=== PATIENT | female | born 1970 | race Caucasian/White ===

== ENCOUNTER 2023-02-24 14:51 | Outpatient (AMB) | payer OTHER, SELFPAY ==
--- NOTE | 2023-02-24 14:57 | MHC.OFFVIS ---
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 pt its been feeling dizziness for the pass 2 weeks and the palpitations comes and go. C4 Planner Required: No Accompanied by: Self / Same As Patient Allergies No Known Allergies Allergy (Verified 02/24/23 15:00) Medication List - Last Reconciled 02/24/23 by MARGIE Corbin sertraline 100 mg PO DAILY HPI ELIGIBILITY SERVICES REPRESENTATIVE[place] [facility] [place] HPI Details Ariana is a 53-year-old female with no significant past medical history who was recently seen in the emergency room for chest discomfort and heart palpitations without significant findings. She now presents here for cardiology consultation. Today she reports that she has been under high stress recently at work and with family issues. Recently when at work she felt lightheaded and had the nurse check her blood pressure and it was noted to be around 140/90 which is very high for her. Later that day she developed a very sharp pain in her left chest region which persisted and cause much concern. She presented to the [facility] ER for evaluation. They performed lab work, EKG and chest x-ray. She left prior to being seen due to prolonged ER wait. Her symptom did resolve without treatment. She describes a history of having chest pain similar to this in the past. She had a stress test last year at [facility] which she reported as being normal. She also describes having heart palpitations where her heart is pounding and skipping causing concern. No shortness of breath, presyncope, syncope, PND, orthopnea or edema. She continues to have episodes where she feels lightheaded. She has family history of atrial fibrillation in her mother and brother. Nonsmoker and only social alcohol use. 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 [facility] Family History Mother A-fib Brother A-fib Father No problems noted. Social History Alcohol intake: current Alcohol intake frequency: holidays/special occasions only Patient Tobacco Use Status: Never used Tobacco Review of Systems Const All systems reviewed & are unremarkable except as noted in HPI and below Denies chills, Denies fatigue, Denies fever(s), Denies frequent falls, Denies weakness, Denies weight gain and Denies weight loss ENT Denies dizziness Card Reports chest pain, Denies leg edema, Reports lightheadedness, Reports palpitations, Denies dyspnea, Denies dyspnea on exertion and Denies orthopnea Resp Denies cough, Denies dyspnea and Denies dyspnea on exertion GI Denies bloating and Denies change in bowel habits Musc Denies muscle weakness, Denies numbness and Denies tingling Neuro Denies dizziness, Denies frequent falls, Denies numbness, Denies tingling and Denies weakness Endo Denies fatigue and Reports palpitations Physical Exam Vital Signs: Last Vital Signs Pulse 76 02/24/23 14:58 BP 120/60 02/24/23 14:58 BMI result Body Mass Index 23.8 Const General: cooperative, healthy appearing, comfortable and no acute distress Orientation/consciousness: patient oriented x3 Neck Neck: Yes normal visual inspection Resp Effort & Inspection: normal respiratory effort Auscultation: clear to auscultation bilaterally, no rales, no rhonchi and no wheezes Cardio Jugular venous distension: no JVD Rate: regular rate Rhythm: regular rhythm Heart sounds: S1 normal heart sound present, S2 normal heart sound present, no murmurs and no rubs Neuro General: patient oriented x3 Extrem General: Yes normal to inspection Psych Appearance: grossly normal Mental Status: mental status grossly normal Speech and movement: Normal speech and movement present Office Procedures EKG Details: Today, read by me, normal sinus rhythm, right bundle branch block, rate 76, QTC 450 milliseconds [id number], Complete Assessment & Plan Assessment & Plan (1) Chest discomfort: Code(s): R07.89 - Other chest pain Plan: Reports of sharp chest pain to the left chest region in the setting of high stress levels and blood pressure more elevated than her usual. [place] [facility] [place] and reports having lab work, chest x-ray and EKG done. She left prior to MD evaluation due to prolonged ER weight. Her symptom did resolve on its own. EKG reviewed by me showed normal sinus rhythm with right bundle branch block, no acute ST or T-wave abnormalities. EKG was unchanged from one done 11/15/2021. Exercise stress test had been done 12/23/2021 showing normal findings. Today she reports intermittent episodes of chest discomfort and heart palpitations causing concern. EKG done today showing sinus rhythm with right bundle branch block, rate 76. For completeness will further evaluate with stress echocardiogram to ensure no ischemic findings. Will check echocardiogram to assess for any structural heart disease. Signs and symptoms of angina reviewed. Emergency care if needed for symptoms. Plan to call her with test results when available. (2) Palpitation: Code(s): R00.2 - Palpitations Plan: Reports of heart palpitations like her heart is skipping beats and going fast at times causing much concern. Echo and Holter as above. (3) Elevated BP without diagnosis of hypertension: Code(s): R03.0 - Elevated blood-pressure reading, without diagnosis of hypertension Plan: Recent high stress levels. Blood pressure documented to be more elevated than her usual. She states typically her blood pressure is like 110/60. Blood pressure today a recheck by or 140/82. Recommended obtaining home blood pressure monitor and do periodic checks at home. No need for medical management at present (4) Right bundle branch block (RBBB): Code(s): I45.10 - Unspecified right bundle-branch block Plan: Finding of right bundle branch block on EKG. According [place] [facility] [place] right bundle branch present on EKG 10/2021. (5) Family history of atrial fibrillation: Code(s): Z82.49 - Family history of ischemic heart disease and other diseases of the circulatory system Plan: Mother, brother each have atrial fibrillation. Patient is reporting heart palpitations. Holter monitor as above. Plan Time spent on chart review, documentation, interview and assessment Orders: Orders CA echo transthoracic complete Today I45.10 - Unspecified right bundle-branch block, R00.2 - Palpitations, R03.0 - Elevated blood-pressure reading, without diagnosis of hypertension CA echo stress exercise Today I45.10 - Unspecified right bundle-branch block, R03.0 - Elevated blood-pressure reading, without diagnosis of hypertension, R07.89 - Other chest pain ECG 3 day holter monitor Today I45.10 - Unspecified right bundle-branch block, R00.2 - Palpitations, Z82.49 - Family history of ischemic heart disease and other diseases of the circulatory system Coding Level of Care Code New Pt Level 4 (65812) Diagnoses Chest discomfort R07.89 Palpitation R00.2 Elevated BP without diagnosis of hypertension R03.0 Right bundle branch block (RBBB) I45.10 Family history of atrial fibrillation Z82.49 CPT Codes EKG - CPT: 76812-[id number], Complete ([id number]) Time Spent (min) 30
[2023-02-24 14:58] VITALS: BP 120/60; PULSE 76; BMI 23.8
== END 2023-02-24 15:50 | disposition home or self-care (01) ==
PROVIDERS: Visit Provider Nurse Practitioner Family
DX: R07.89 Other chest pain (principal); R00.2 Palpitations; R03.0 Elevated blood-pressure reading, without diagnosis of hypertension; I45.10 Unspecified right bundle-branch block; Z82.49 Family history of ischemic heart disease and other diseases of the circulatory system
CPT/HCPCS: 93010; 99204

== ENCOUNTER → 2023-02-24 14:51 | Outpatient (BNVA) | payer OTHER, SELFPAY | PROVIDERS: Visit Provider Nurse Practitioner Family | DX: R00.2 Palpitations (principal); R07.89 Other chest pain; R03.0 Elevated blood-pressure reading, without diagnosis of hypertension; I45.10 Unspecified right bundle-branch block; Z82.49 Family history of ischemic heart disease and other diseases of the circulatory system | CPT/HCPCS: 93005 ==

== ENCOUNTER → 2023-03-15 14:50 | Outpatient (REF) | payer OTHER, SELFPAY ==
--- NOTE | 2023-03-15 14:55 | CA_ITS ---
Transthoracic Echocardiogram Patient (Last, First, Middle): Ariana Shah T Gender: Female Date of : 1970 Age: 53 Procedure Date: 03/15/2023 Procedure Type: Transthoracic Echocardiogram Location: OP Height: 162.56 cm Weight: 62.6 kg BSA: 1.67 m2 Heart Rate: 67 bpm BP: 120 / 60 mmHg Executive Secretary: URIAH Referring MD: Maryann Marquez PROJECT ASSOCIATE-C Nutrition Instructor: Khurram Dalton MD Symptoms: I45.10 - Unspecified right bundle-branch block Study Quality: Adequate ECG Rhythm: Sinus Conclusions: - 1. Normal LV ejection fraction 55-60% 2. Normal cardiac valvular Doppler 3. Normal RV systolic pressure 4. Mildly dilated ascending aorta 3.8 cm 5. No pericardial effusion Findings Left Ventricle Normal left ventricular size, thickness, and systolic function. The visually estimated ejection fraction is between 55-60%. Spectral Doppler is indicative of a normal filling pattern. Right Ventricle Normal right ventricular cavity size and systolic function. Atria The left atrium is likely dilated. There is a highly mobile atrial septum noted. Interatrial shunt cannot be excluded. The right atrium is normal in size. Aortic Valve Normal aortic valve structure and function. There is no aortic valve stenosis. There is no aortic valve regurgitation. Mitral Valve Normal mitral valve structure and function. There is trace mitral valve regurgitation. There is no mitral valve stenosis. Pulmonic Valve The pulmonic valve is likely normal. Tricuspid Valve Normal tricuspid valve structure. There is trace tricuspid valve regurgitation. The right ventricular systolic pressure is normal. The right ventricular systolic pressure is 20 mmHg. Normal right atrial pressure. There is no evidence of pulmonary hypertension. Great Vessels The pulmonary artery was not well visualized. There is mild dilatation of the ascending aorta measuring 3.80 cm. Venous The inferior vena cava is normal in size and collapses greater than 50% with inspiration. Pericardium/Pleural There is no evidence of pericardial effusion. Prior Study Comparison No prior study available for comparison. Recommendations, Care & Conclusions Recommend contrast study to evaluate intracardiac shunting. Measurements 2D Linear Measurements IVSd: 0.70 0.6-0.9/0.6-1.0 cm LVIDd: 5.11 3.9-5.3/4.2-5.9 cm LVIDd Index: 3.06 2.4-3.2/2.2-3.1 cm/m2 LVIDs: 3.28 2.0-3.6 cm LVPWd: 0.63 0.7-1.1 cm LA Diam: 3.40 2.7-3.8/3.0-4.0 cm LAIDs Index: 2.04 1.5-2.3 cm/m2 LV Mass: 138.87 67-162/88-224 g LV Mass Index: 83.16 43-95/49-115 g/m2 LVOT Diam: 2.30 3.0+(-)1.3 cm Mitral Valve MV Pk E: 0.77 MV PK A: 0.72 MV Decel Time: 155.00 E/A: 1.10 E'Lateral: 11.10 E'Medial: 7.18 E/E' Med: 10.70 E/E' Lat: 6.90 PHT: 45.00 MVA PHT: 4.89 Decel [place]: 4.97 Aortic Valve AoV Pk Get: 1.06 AoV Pk Grad: 4.00 CLARKE: 3.30 LVOT LVOT Pk Get: 0.84 LVOT Mn Get: 0.62 LVOT VTI: 0.19 LVOT Pk Grad: 3.00 LVOT Mn Grad: 2.00 LVOT Diam: 2.30 LVOT Area: 4.15 Diastolic Function MV Pk E: 0.77 MV Pk A: 0.72 E/A: 1.10 E'Medial: 7.18 E/E' Med: 10.70 E' Laterial: 11.10 E/E' Lat: 6.90 Right Ventricle TAPSE (mm): 22.40 TVS' Get: 10.90 Tricuspid Valve TR Pk Get: 2.04 TR Pk Grad: 17.00 RA Press: 3.00 RVSP: 20.00 Great Vessels Aorta Sinus of Valsalva: 3.40 2.0-3.5 cm Ao Asc: 3.80 2.1-3.4 cm Pulmonary Valve PV Pk Get: 0.75 Peak PV Grad: 2.00 Updated in Other Vendor System with Status of Final Khurram Dalton MD electronically signed on 03/15/2023 4:08:52 PM with status of Final
== END ==
LOC: HO.CARD 14:50
PROVIDERS: PCP Internal Medicine; Visit Provider Nurse Practitioner Family
DX: I45.10 Unspecified right bundle-branch block (principal); R03.0 Elevated blood-pressure reading, without diagnosis of hypertension; R00.2 Palpitations
CPT/HCPCS: 93306

== ENCOUNTER → 2023-03-15 14:55 | Outpatient (BNV) | payer OTHER, SELFPAY | PROVIDERS: PCP Internal Medicine; Visit Provider Internal Medicine Cardiovascular Disease | DX: R00.2 Palpitations (principal); R94.31 Abnormal electrocardiogram [ECG] [EKG] | CPT/HCPCS: 93306 ==

== ENCOUNTER → 2023-05-15 12:45 | Outpatient (REF) | payer OTHER, SELFPAY ==
--- NOTE | 2023-05-15 12:47 | HM_ITS ---
* Total monitoring time 3 days. * Underlying rhythm is sinus with an average rate of 86/Min. Range 64 to 126/Min. * Rare supraventricular ectopy. One short run of 12 beats. * No significant pauses or AV blocks. * No patient markers or diary events. MTDD
== END ==
LOC: HO.CARD 12:45
PROVIDERS: PCP Internal Medicine; Visit Provider Nurse Practitioner Family
DX: R00.2 Palpitations (principal); I45.10 Unspecified right bundle-branch block; Z82.49 Family history of ischemic heart disease and other diseases of the circulatory system
CPT/HCPCS: 93242

== ENCOUNTER → 2023-05-15 12:47 | Outpatient (BNV) | payer OTHER, SELFPAY | PROVIDERS: PCP Internal Medicine; Visit Provider Internal Medicine | DX: R00.2 Palpitations (principal) | CPT/HCPCS: 93244 ==

== ENCOUNTER → 2023-07-12 09:05 | Outpatient (REF) | payer OTHER, SELFPAY ==
--- NOTE | 2023-07-12 09:07 | CA_ITS ---
Transthoracic Echocardiogram Patient (Last, First, Middle): Ariana Shah T Gender: Female Date of : 1970 Age: 53 Procedure Date: 07/12/2023 Procedure Type: Transthoracic Echocardiogram Location: OP Height: 64. cm Weight: 63.5 kg BSA: 0.86 m2 Heart Rate: bpm BP: 130 / 84 mmHg Conference Services Manager: [email or web address] Referring MD: Maryann Marquez VACUUM CLEANER REPAIRERSanchez Train Engineer: Khurram Dalton MD Symptoms: R93.1 - Abnormal findings on diagnostic imaging of heart and coronary ci... Study Quality: Adequate ECG Rhythm: Sinus Conclusions: - No evidence of PFO Findings Atria There is no evidence of interatrial shunt by agitated saline. negative bubble study. Updated in Other Vendor System with Status of Final Khurram Dalton MD electronically signed on 07/12/2023 12:51:56 PM with status of Final
== END ==
LOC: HO.CARD 09:05
PROVIDERS: PCP Internal Medicine; Visit Provider Nurse Practitioner Family
DX: R93.1 Abnormal findings on diagnostic imaging of heart and coronary circulation (principal)
CPT/HCPCS: 93308

== ENCOUNTER → 2023-07-12 09:07 | Outpatient (BNV) | payer OTHER, SELFPAY | PROVIDERS: PCP Internal Medicine; Visit Provider Internal Medicine Cardiovascular Disease | DX: R93.1 Abnormal findings on diagnostic imaging of heart and coronary circulation (principal) | CPT/HCPCS: 93308 ==